=== PATIENT | female | born 1945 | race Caucasian/White ===

== ENCOUNTER → 2017-06-29 | Outpatient (CLI) | payer MEDICARE, OTHER | END | disposition home or self-care (01) | LOC: CFH 10:26 | PROVIDERS: ATTEND Clinical Nurse Specialist | DX: R11.10 Vomiting, unspecified (principal); R10.9 Unspecified abdominal pain; K21.0 Gastro-esophageal reflux disease with esophagitis; K59.09 Other constipation | CPT/HCPCS: 74241 ==